=== PATIENT | female | born 1945 | race Caucasian/White ===

== ENCOUNTER → 2016-08-02 | Outpatient (REF) | payer MEDICARE ==
[2016-08-02 18:36] LABS: FOLATE > 24.0 NG/ML (>5.4); VITAMIN B12 LEVEL 1958 PG/ML (247-911)
== END ==
LOC: M LABNEURO 17:04
PROVIDERS: ATTEND Psychiatry & Neurology Neurology
DX: G62.9 Polyneuropathy, unspecified (principal)

== ENCOUNTER → 2016-12-26 | Outpatient (REF) | payer MEDICARE, OTHER ==
[2016-12-26 18:47] LABS: ALBUMIN 3.3 GM/DL (3.2-5.2); ALBUMIN/GLOBULIN RATIO 0.8 (1.00-1.93); BILIRUBIN,TOTAL 0.4 MG/DL (0.2-1.0); CALCIUM LEVEL 9.5 MG/DL (8.8-10.2); CREATININE FOR GFR 1.15 MG/DL (0.55-1.02); FREE T4 0.94 NG/DL (0.76-1.46); GLOMERULAR FILTRATION RATE 49.4 (>39); POTASSIUM SERUM 4.7 MEQ/L (3.5-5.1); TOTAL PROTEIN 7.4 GM/DL (6.4-8.2)
== END ==
LOC: M SFHCLERA 12:16
PROVIDERS: ATTEND Family Medicine
DX: E11.9 Type 2 diabetes mellitus without complications (principal); R53.83 Other fatigue

== ENCOUNTER → 2017-02-13 | Outpatient (REF) | payer MEDICARE, OTHER ==
[2017-02-13 16:47] LABS: ALBUMIN 2.8 GM/DL (3.2-5.2); ALBUMIN/GLOBULIN RATIO 0.74 (1.00-1.93); BILIRUBIN,TOTAL 0.4 MG/DL (0.2-1.0); CALCIUM LEVEL 8.8 MG/DL (8.8-10.2); CREATININE FOR GFR 1.28 MG/DL (0.55-1.02); GLOMERULAR FILTRATION RATE 43.6 (>39); POTASSIUM SERUM 3.7 MEQ/L (3.5-5.1); TOTAL PROTEIN 6.6 GM/DL (6.4-8.2)
== END ==
LOC: M LABNEURO 15:26
PROVIDERS: ATTEND Psychiatry & Neurology Neurology
DX: Z51.81 Encounter for therapeutic drug level monitoring (principal); Z79.899 Other long term (current) drug therapy

== ENCOUNTER → 2017-03-25 | Outpatient (REF) | payer MEDICARE, OTHER | LOC: M SFHCLERA 18:52 | PROVIDERS: ATTEND Family Medicine | DX: R60.9 Edema, unspecified (principal) ==

== ENCOUNTER → 2017-03-25 | Outpatient (REF) | payer MEDICARE, OTHER ==
[2017-03-25 18:43] LABS: ALBUMIN/GLOBULIN RATIO 0.81 (1.00-1.93); BILIRUBIN,TOTAL 0.4 MG/DL (0.2-1.0); CALCIUM LEVEL 8.5 MG/DL (8.8-10.2); CREATININE FOR GFR 1.46 MG/DL (0.55-1.02); GLOMERULAR FILTRATION RATE 37.5 (>39); POTASSIUM SERUM 3.5 MEQ/L (3.5-5.1); TOTAL PROTEIN 6.7 GM/DL (6.4-8.2)
[2017-03-25 18:56] LABS: BASO % 0.5 % (0.0-1.0); EOS # 0.2 K/mm3 (0.0-0.50); LARGE UNSTAINED CELL # 0.1 K/mm3 (0.0-0.4); LARGE UNSTAINED CELL % 1.2 % (0.0-4.0); LYMPH # 2.1 K/mm3 (1.5-4.5); LYMPH % 33.5 % (24.0-44.0); MEAN CORPUSCULAR HEMOGLOBIN 30.7 pg (27.0-33.0); MEAN CORPUSCULAR HGB CONC 32.7 g/dl (32.0-36.5); MEAN CORPUSCULAR VOLUME 93.6 fl (80.0-96.0); MONO # 0.4 K/mm3 (0.0-0.8); MONO % 7.1 % (0.0-5.0); NEUTROPHILS # 3.2 K/mm3 (1.8-7.7); NEUTROPHILS % 54.7 % (36.0-66.0); PLATELET COUNT, AUTOMATED 149 k/mm3 (150-450); RED CELL DISTRIBUTION WIDTH 13.2 % (11.5-14.5); WHITE BLOOD COUNT 5.9 K/mm3 (4.0-10.0)
== END ==
LOC: M SFHCLERA 16:28
PROVIDERS: ATTEND Family Medicine
DX: R60.9 Edema, unspecified (principal); Z79.899 Other long term (current) drug therapy
CPT/HCPCS: 36415; 80053; 83880; 85025; G0463

== ENCOUNTER → 2017-03-26 | Outpatient (REF) | payer MEDICARE, OTHER | LOC: M SFHCLERA 12:06 | PROVIDERS: ATTEND Family Medicine | DX: R60.9 Edema, unspecified (principal) ==

== ENCOUNTER 2017-06-06 21:55 | Emergency (ER) | payer MEDICARE, OTHER ==
[~2017-06-06] VITALS: Ht 157.5 cm; Wt 84.1 kg
--- NOTE | 2017-06-06 22:46 | REP ---
Clinical: Trauma. Comparison: 03/19/2015. Technique: Axial noncontrast images from the skull base to the thoracic inlet with coronal and sagittal re-formations. Findings: Stable advanced multilevel degenerative disc osteophyte complexes are appreciated and essentially unchanged. Findings include bridging osteophytes as well as posterior osteophytes at the C4-5 through C6-7 level which appear to cause chronic canal stenosis and has not changed as compared to 2014. Alignment and lordosis is otherwise maintained and there is no evidence for acute fracture / compression injury or subluxation. Posterior elements and spinous processes are intact. Paravertebral soft tissues are normal. Impression: Chronic stable advanced multilevel degenerative changes. No acute fracture / compression injury or subluxation. Signed by David Saleh MD 06/06/2017 10:38 P
--- NOTE | 2017-06-06 22:47 | REP ---
Clinical: Trauma. Comparison: 08/24/2016. Findings: Age-related atrophy, periventricular leukomalacia and microvascular ischemic changes are appreciated. The ventricles and sulci are symmetric. Kaminski-white differentiation is maintained. There is no evidence for acute intracranial hemorrhage, mass/mass effect, pathology or infarction. No extra-axial fluid collection. Calvarium is intact. Paranasal sinuses and mastoid air cells are clear. Impression: Age related atrophy and microvascular ischemic changes. No acute intracranial hemorrhage, infarction, or mass/mass effect. Signed by David Saleh MD 06/06/2017 10:38 P
[2017-06-06 23:16] LABS: BASO % 0.4 % (0.0-1.0); EOS # 0.1 10^3/uL (0.0-0.50); EOS % 1.9 % (0.0-3.0); IMMATURE GRANULOCYTE % 0.1 % (0-0); LYMPH % 42.8 % (24.0-44.0); MEAN CORPUSCULAR HEMOGLOBIN 29.1 pg (27.0-33.0); MEAN CORPUSCULAR HGB CONC 32.8 g/dl (32.0-36.5); MEAN CORPUSCULAR VOLUME 88.8 fl (80.0-96.0); MONO # 0.7 10^3/uL (0.0-0.8); MONO % 9.4 % (0.0-5.0); NEUTROPHILS # 3.1 10^3/uL (1.8-7.7); NEUTROPHILS % 45.4 % (36.0-66.0); PLATELET COUNT, AUTOMATED 163 10^3/uL (150-450); RED CELL DISTRIBUTION WIDTH 15.1 % (11.5-14.5); WHITE BLOOD COUNT 6.9 10^3/uL (4.0-10.0)
[2017-06-07 00:03] LABS: ALBUMIN 2.7 GM/DL (3.2-5.2); ALBUMIN/GLOBULIN RATIO 0.64 (1.00-1.93); BILIRUBIN,DIRECT 0.2 MG/DL (0.0-0.2); BILIRUBIN,TOTAL 0.4 MG/DL (0.2-1.0); CALCIUM LEVEL 8.7 MG/DL (8.8-10.2); CREATININE FOR GFR 1.1 MG/DL (0.55-1.02); GLOMERULAR FILTRATION RATE 51.8 (>39); THYROXINE (T4) 10.4 UG/DL (4.5-12.0); TOTAL PROTEIN 6.9 GM/DL (6.4-8.2)
[2017-06-07] MEDS ORDERED: NS 1,000 ML IV ONE (00:15)
[2017-06-07] MEDS ORDERED: CIPROFLOXACIN 400 MG in APPROPRIATE DILUENT 1 EA IV ONE (00:15)
[2017-06-07] MEDS ORDERED: CIPR-249 PO (01:26)
[2017-06-07 01:59] VITALS: BP 121/59
--- NOTE | 2017-06-07 08:51 | REP ---
Clinical: Trauma. Technique: Frontal view of the pelvis with neutral and frog lateral views of the right hip. Findings: No acute fracture dislocation. Age related enthesopathy and moderate arthritic degenerative changes to the bilateral hips appear symmetric. Surrounding soft tissues are unremarkable. Impression: Degenerative changes. No acute fracture or dislocation. Signed by David Saleh MD 06/07/2017 08:43 A
--- NOTE | 2017-06-07 08:52 | REP ---
Clinical: Trauma. Technique: AP, lateral, bilateral oblique views of the right knee. Findings: Advanced tricompartmental osteoarthritic degenerative changes include cortical irregularity, spurring/osteophyte formation, and joint space narrowing. No obvious acute fracture or dislocation. Lateral view cannot exclude small suprapatellar effusion. Impression: Osteopenia and advanced tricompartmental degenerative changes. Possible small suprapatellar effusion. No acute fracture or dislocation identified. Signed by David Saleh MD 06/07/2017 08:43 A
== END 2017-06-07 02:05 | disposition home or self-care (01) ==
LOC: M ED 21:55
DX: E86.0 Dehydration (principal); N39.0 Urinary tract infection, site not specified; W19.XXXA Unspecified fall, initial encounter; Y92.099 Unspecified place in other non-institutional residence as the place of occurrence of the external cause; Y93.01 Activity, walking, marching and hiking; Y99.9 Unspecified external cause status; M85.88 Other specified disorders of bone density and structure, other site; I51.9 Heart disease, unspecified; I10 Essential (primary) hypertension; E11.9 Type 2 diabetes mellitus without complications; R25.1 Tremor, unspecified; Z86.73 Personal history of transient ischemic attack (TIA), and cerebral infarction without residual deficits
CPT/HCPCS: 51701; 70450; 72125; 73502; 73564; 80048; 80076; 81001; 84436; 84443; 84479; 85025; 87088; 87186; 96374; 99284; J0744

== ENCOUNTER → 2017-09-09 | Outpatient (REF) | payer MEDICARE, OTHER ==
[2017-09-09 16:41] LABS: BASO % 0.5 % (0.0-1.0); EOS # 0.2 10^3/uL (0.0-0.50); EOS % 2.6 % (0.0-3.0); HEMATOCRIT 34.4 % (36.0-47.0); IMMATURE GRANULOCYTE % 0.1 % (0-3.0); LYMPH # 3.1 10^3/uL (1.5-4.5); LYMPH % 40.5 % (24.0-44.0); MEAN CORPUSCULAR HEMOGLOBIN 29.2 pg (27.0-33.0); MEAN CORPUSCULAR VOLUME 91.2 fl (80.0-96.0); MONO # 0.4 10^3/uL (0.0-0.8); MONO % 5.8 % (0.0-5.0); NEUTROPHILS # 3.8 10^3/uL (1.8-7.7); NEUTROPHILS % 50.5 % (36.0-66.0); PLATELET COUNT, AUTOMATED 181 10^3/uL (150-450); RED BLOOD COUNT 3.77 10^6/uL (4.00-5.40); RED CELL DISTRIBUTION WIDTH 13.8 % (11.5-14.5); WHITE BLOOD COUNT 7.6 10^3/uL (4.0-10.0)
[2017-09-09 17:30] LABS: ALBUMIN 3.2 GM/DL (3.2-5.2); ALKALINE PHOSPHATASE 52 U/L (45-117); ALT/SGPT 17 U/L (12-78); ANION GAP 6 MEQ/L (8-16); AST/SGOT 15 U/L (7-37); BILIRUBIN,TOTAL 0.2 MG/DL (0.2-1.0); BLOOD UREA NITROGEN 27 MG/DL (7-18); CALCIUM LEVEL 9.2 MG/DL (8.8-10.2); CARBON DIOXIDE LEVEL 34 MEQ/L (21-32); CHLORIDE LEVEL 105 MEQ/L (98-107); CREATININE FOR GFR 1.34 MG/DL (0.55-1.30); GLOMERULAR FILTRATION RATE 41.3 (>39); GLUCOSE, FASTING 74 MG/DL (70-100); POTASSIUM SERUM 4.4 MEQ/L (3.5-5.1); SODIUM LEVEL 145 MEQ/L (136-145); TOTAL PROTEIN 7.2 GM/DL (6.4-8.2)
[2017-09-09 17:48] LABS: ESTIMATED AVERAGE GLUCOSE 126 MG/DL (60-110)
== END ==
LOC: M SFHCLERA 11:17
DX: E11.9 Type 2 diabetes mellitus without complications (principal); I10 Essential (primary) hypertension; D69.6 Thrombocytopenia, unspecified
CPT/HCPCS: 80053

== ENCOUNTER → 2017-11-11 | Outpatient (CLI) | payer MEDICARE, OTHER | LOC: M LRY 14:55 | DX: S49.91XA Unspecified injury of right shoulder and upper arm, initial encounter (principal); M25.711 Osteophyte, right shoulder; X58.XXXA Exposure to other specified factors, initial encounter; Y92.9 Unspecified place or not applicable; Y93.9 Activity, unspecified | CPT/HCPCS: 73030; G0463 ==

== ENCOUNTER → 2018-01-06 | Outpatient (CLI) | payer MEDICARE, OTHER | LOC: M RAD 16:40 | DX: M75.41 Impingement syndrome of right shoulder (principal); S49.91XA Unspecified injury of right shoulder and upper arm, initial encounter; X58.XXXA Exposure to other specified factors, initial encounter; Y92.89 Other specified places as the place of occurrence of the external cause; Y99.9 Unspecified external cause status; Y93.9 Activity, unspecified | CPT/HCPCS: 73221 ==

== ENCOUNTER → 2018-01-23 | Outpatient (CLI) | payer MEDICARE, OTHER | LOC: M LRY 19:25 | DX: J98.11 Atelectasis (principal); R42 Dizziness and giddiness; E11.9 Type 2 diabetes mellitus without complications; R60.0 Localized edema; Z79.899 Other long term (current) drug therapy | CPT/HCPCS: 71046; 80053 ==

== ENCOUNTER → 2018-01-23 | Outpatient (REF) | payer MEDICARE, OTHER ==
[2018-01-23 20:34] LABS: BASO % 0.5 % (0.0-1.0); EOS # 0.3 10^3/uL (0.0-0.50); EOS % 3.3 % (0.0-3.0); HEMATOCRIT 36.4 % (36.0-47.0); HEMOGLOBIN 12.1 g/dl (12.0-15.5); IMMATURE GRANULOCYTE % 0.2 % (0-3.0); LYMPH # 3.6 10^3/uL (1.5-4.5); MEAN CORPUSCULAR HEMOGLOBIN 30.4 pg (27.0-33.0); MEAN CORPUSCULAR HGB CONC 33.2 g/dl (32.0-36.5); MEAN CORPUSCULAR VOLUME 91.5 fl (80.0-96.0); MONO # 0.6 10^3/uL (0.0-0.8); MONO % 6.6 % (0.0-5.0); NEUTROPHILS % 47.4 % (36.0-66.0); PLATELET COUNT, AUTOMATED 204 10^3/uL (150-450); RED BLOOD COUNT 3.98 10^6/uL (4.00-5.40); RED CELL DISTRIBUTION WIDTH 13.5 % (11.5-14.5); WHITE BLOOD COUNT 8.5 10^3/uL (4.0-10.0)
[2018-01-23 20:43] LABS: ESTIMATED AVERAGE GLUCOSE 143 MG/DL (60-110); HEMOGLOBIN A1c 6.6 %
[2018-01-23 21:13] LABS: ALBUMIN 3.6 GM/DL (3.2-5.2); ALBUMIN/GLOBULIN RATIO 0.95 (1.00-1.93); ALKALINE PHOSPHATASE 86 U/L (45-117); ALT/SGPT 11 U/L (12-78); ANION GAP 7 MEQ/L (8-16); AST/SGOT 13 U/L (7-37); BILIRUBIN,TOTAL 0.3 MG/DL (0.2-1.0); BLOOD UREA NITROGEN 41 MG/DL (7-18); CALCIUM LEVEL 8.9 MG/DL (8.8-10.2); CARBON DIOXIDE LEVEL 33 MEQ/L (21-32); CHLORIDE LEVEL 102 MEQ/L (98-107); CREATININE FOR GFR 1.45 MG/DL (0.55-1.30); GLOMERULAR FILTRATION RATE 37.7 (>39); GLUCOSE, FASTING 81 MG/DL (70-100); NT-PRO BNP 704 PG/ML (<125); POTASSIUM SERUM 4.6 MEQ/L (3.5-5.1); SODIUM LEVEL 142 MEQ/L (136-145); TOTAL PROTEIN 7.4 GM/DL (6.4-8.2); TROPONIN I < 0.02 NG/ML (< 0.10)
== END ==
LOC: M SFHCLERA 19:09
DX: R42 Dizziness and giddiness (principal); E11.9 Type 2 diabetes mellitus without complications
CPT/HCPCS: 80053

== ENCOUNTER → 2018-01-30 | Outpatient (REF) | payer MEDICARE, OTHER ==
[2018-01-30 20:24] LABS: ANION GAP 4 MEQ/L (8-16); BLOOD UREA NITROGEN 38 MG/DL (7-18); CALCIUM LEVEL 9.1 MG/DL (8.8-10.2); CARBON DIOXIDE LEVEL 36 MEQ/L (21-32); CHLORIDE LEVEL 100 MEQ/L (98-107); CREATININE FOR GFR 1.54 MG/DL (0.55-1.30); GLOMERULAR FILTRATION RATE 35.2 (>39); GLUCOSE, FASTING 172 MG/DL (70-100); POTASSIUM SERUM 4.5 MEQ/L (3.5-5.1); SODIUM LEVEL 140 MEQ/L (136-145)
== END ==
LOC: M SFHCLERA 15:26
DX: I50.9 Heart failure, unspecified (principal)
CPT/HCPCS: 80048

== ENCOUNTER 2018-03-06 07:46 | Day surgery (SDC) | payer MEDICARE, OTHER ==
[2018-03-06] MEDS: POVIDONE-IODINE 5% OPHTH PREP SOL 30ML As Ordered ×2 (06:57)
[2018-03-06] MEDS: OFLOXACIN 0.3 % (OCUFLOX) OPTH SOL 5ML OD ×2 (08:17)
[2018-03-06] MEDS: PROPARACAINE 0.5% OPHTH SOL 15ML OD ×2 (08:17)
[2018-03-06] MEDS: PHENYLEPHRINE 2.5% OPHTH SOL 2ML OD ×2 (08:18)
[2018-03-06] MEDS: TROPICAMIDE 1% OPHTH SOLN 2ML OD ×2 (08:18)
[2018-03-06] MEDS ORDERED: fentaNYL 100 MCG/2 ML INJECTION (J3010) As Ordered ×2 (09:25)
[2018-03-06] MEDS ORDERED: MIDAZOLAM INJ 2 MG/2 ML VIAL (J2250) As Ordered ×2 (09:25)
[2018-03-06] MEDS: BALANCED SALT IRRIGATION SOLUTION 500ML BAG (FOR OR EYE MACHINE) As Ordered ×2 (09:49)
[2018-03-06] MEDS: LIDOCAINE 0.75%/EPINEPHRINE 0.025% IN BSS 1ML SYR INTRACAMERAL (OR ONLY) As Ordered (09:49)
[2018-03-06] MEDS: DUOVISC (0.50ML VISCOAT/0.55ML PROVISC) OPHTH KIT As Ordered ×2 (09:49)
== END 2018-03-06 10:54 | disposition home or self-care (01) ==
LOC: M SDC 07:46
DX: H25.11 Age-related nuclear cataract, right eye (principal); I25.10 Atherosclerotic heart disease of native coronary artery without angina pectoris; I25.2 Old myocardial infarction; G47.30 Sleep apnea, unspecified; G20 Parkinson's disease; Z79.899 Other long term (current) drug therapy; Z86.73 Personal history of transient ischemic attack (TIA), and cerebral infarction without residual deficits; Z91.040 Latex allergy status; Z91.041 Radiographic dye allergy status; Z88.0 Allergy status to penicillin; Z87.891 Personal history of nicotine dependence; I10 Essential (primary) hypertension; E78.5 Hyperlipidemia, unspecified; Z79.82 Long term (current) use of aspirin
CPT/HCPCS: 66984

== ENCOUNTER 2018-03-20 06:31 | Day surgery (SDC) | payer MEDICARE, OTHER ==
[2018-03-20] MEDS: TROPICAMIDE 1% OPHTH SOLN 2ML OS (07:15)
[2018-03-20] MEDS: PHENYLEPHRINE 2.5% OPHTH SOL 2ML OS (07:15)
[2018-03-20] MEDS: OFLOXACIN 0.3 % (OCUFLOX) OPTH SOL 5ML OS (07:15)
[2018-03-20] MEDS: PROPARACAINE 0.5% OPHTH SOL 15ML OS (07:15)
[2018-03-20] MEDS: POVIDONE-IODINE 5% OPHTH PREP SOL 30ML As Ordered (08:11)
[2018-03-20] MEDS: BALANCED SALT IRRIGATION SOLUTION 500ML BAG (FOR OR EYE MACHINE) As Ordered (08:13)
[2018-03-20] MEDS: DUOVISC (0.50ML VISCOAT/0.55ML PROVISC) OPHTH KIT As Ordered (08:14)
[2018-03-20] MEDS: LIDOCAINE 0.75%/EPINEPHRINE 0.025% IN BSS 1ML SYR INTRACAMERAL (OR ONLY) As Ordered (08:14)
[2018-03-20] MEDS ORDERED: MIDAZOLAM INJ 2 MG/2 ML VIAL (J2250) As Ordered (08:33)
[2018-03-20] MEDS ORDERED: fentaNYL 100 MCG/2 ML INJECTION (J3010) As Ordered (08:33)
== END 2018-03-20 09:15 | disposition home or self-care (01) ==
LOC: M SDC 06:31
DX: H25.12 Age-related nuclear cataract, left eye (principal); H52.202 Unspecified astigmatism, left eye; I25.10 Atherosclerotic heart disease of native coronary artery without angina pectoris; I10 Essential (primary) hypertension; I25.2 Old myocardial infarction; G47.30 Sleep apnea, unspecified; Z88.0 Allergy status to penicillin; Z91.040 Latex allergy status; Z79.899 Other long term (current) drug therapy; E78.5 Hyperlipidemia, unspecified; Z87.891 Personal history of nicotine dependence; Z86.73 Personal history of transient ischemic attack (TIA), and cerebral infarction without residual deficits
CPT/HCPCS: 66984

== ENCOUNTER → 2018-04-21 | Outpatient (REF) | payer MEDICARE, OTHER | LOC: M SFHCLERA 15:12 | DX: R51 Headache (principal); E11.9 Type 2 diabetes mellitus without complications ==

== ENCOUNTER → 2018-05-03 | Outpatient (REF) | payer MEDICARE, OTHER ==
[2018-05-03 19:48] LABS: ALBUMIN 3.9 GM/DL (3.2-5.2); ALBUMIN/GLOBULIN RATIO 1.03 (1.00-1.93); ALKALINE PHOSPHATASE 78 U/L (45-117); ALT/SGPT 20 U/L (12-78); ANION GAP 6 MEQ/L (8-16); AST/SGOT 13 U/L (7-37); BILIRUBIN,TOTAL 0.3 MG/DL (0.2-1.0); BLOOD UREA NITROGEN 20 MG/DL (7-18); CALCIUM LEVEL 9.2 MG/DL (8.8-10.2); CARBON DIOXIDE LEVEL 32 MEQ/L (21-32); CHLORIDE LEVEL 106 MEQ/L (98-107); CHOLESTEROL LEVEL 256 MG/DL (<200); CHOLESTEROL RISK RATIO 5.818 (<5); CREATININE FOR GFR 1.18 MG/DL (0.55-1.30); GLOMERULAR FILTRATION RATE 47.7 (>39); GLUCOSE, FASTING 104 MG/DL (70-100); HDL CHOLESTEROL 44 MG/DL (>40); LDL CHOLESTEROL 140 MG/DL (<100); NON-HDL-C 212 MG/DL; POTASSIUM SERUM 4.7 MEQ/L (3.5-5.1); SODIUM LEVEL 144 MEQ/L (136-145); TOTAL PROTEIN 7.7 GM/DL (6.4-8.2); TRIGLYCERIDES LEVEL 360 MG/DL (<150)
[2018-05-03 20:00] LABS: ESTIMATED AVERAGE GLUCOSE 134 MG/DL (60-110); HEMOGLOBIN A1c 6.3 %
[2018-05-03 20:17] LABS: MALB URINE SIEMENS 34.1 MG/L
[2018-05-03 20:25] LABS: MAU/CREAT RATIO 17.5 MCG/MG (0.0-30.0)
[2018-05-03 21:05] LABS: ERYTHROCYTE SEDIMENTATION RATE 24 mm/hr (0-30)
== END ==
LOC: M SFHCLERA 14:37
DX: E11.9 Type 2 diabetes mellitus without complications (principal); R51 Headache

== ENCOUNTER → 2018-05-03 | Outpatient (CLI) | payer MEDICARE, OTHER | LOC: M LRY 14:38 | DX: M89.9 Disorder of bone, unspecified (principal); E11.9 Type 2 diabetes mellitus without complications; R51 Headache | CPT/HCPCS: 80053 ==

== ENCOUNTER → 2018-10-28 | Outpatient (REF) | payer MEDICARE, OTHER ==
[~2018-10-28] MED LIST: ALBU17IN2 INH; AMLO2.5T3 PO; ASPI81TA26 PO; CARV6.25 PO; CIPR-249 PO; EPIP0.3I2 IM; FERR325T3 PO; FOLI1TAB11 PO; GABA-843 PO; HYDR-3713 PO; IBUP-1114 PO; MAGN400T2 PO; MECL-86 PO; MELA10CA PO; MYRB50TA PO; ROPI0.5T PO; SINE25TA5 PO; TORS100T PO; TRAM50TA2 PO; VALS1TAB67 PO; VITA500T3 PO; WOMETAB2 PO
[2018-10-28 18:34] LABS: MALB URINE SIEMENS 84.5 MG/L; MAU/CREAT RATIO 24.6 MCG/MG (0.0-30.0)
[2018-10-28 19:26] LABS: CALCIUM LEVEL 9.8 MG/DL (8.8-10.2); CREATININE FOR GFR 1.38 MG/DL (0.55-1.30); GLOMERULAR FILTRATION RATE 39.8 (>39); POTASSIUM SERUM 4.5 MEQ/L (3.5-5.1)
[2018-10-28 19:41] LABS: HEMOGLOBIN A1c 6.8 %
== END ==
LOC: M SFHCLERA 11:56
PROVIDERS: ATTEND Family Medicine
DX: E11.9 Type 2 diabetes mellitus without complications (principal)
CPT/HCPCS: 80048; 82043; 83036; G0463

== ENCOUNTER 2018-11-23 22:59 | Emergency (ER) | payer MEDICARE, OTHER ==
[~2018-11-23] VITALS: Ht 157.5 cm; Wt 99.1 kg
[2018-11-24 00:05] LABS: HEMATOCRIT 38.5 % (36.0-47.0); HEMOGLOBIN 12.5 g/dl (12.0-15.5); MEAN CORPUSCULAR HEMOGLOBIN 30.3 pg (27.0-33.0); MEAN CORPUSCULAR HGB CONC 32.5 g/dl (32.0-36.5); MEAN CORPUSCULAR VOLUME 93.2 fl (80.0-96.0); PLATELET COUNT, AUTOMATED 193 10^3/uL (150-450); RED BLOOD COUNT 4.13 10^6/uL (4.00-5.40); WHITE BLOOD COUNT 9.3 10^3/uL (4.0-10.0)
[2018-11-24 00:29] LABS: AMPHETAMINES LEVEL URINE NEGATIVE (NEGATIVE); BARBITURATES URINE NEGATIVE (NEGATIVE); BENZODIAZEPINES URINE NEGATIVE (NEGATIVE); CANNABINOIDS URINE NEGATIVE (NEGATIVE); COCAINE METABOLITE URINE NEGATIVE (NEGATIVE); METHADONE URINE NEGATIVE (NEGATIVE); OPIATES URINE NEGATIVE (NEGATIVE); PHENCYCLIDINE URINE NEGATIVE (NEGATIVE)
[2018-11-24 00:32] LABS: ACETAMINOPHEN LEVEL < 2.0 UG/ML (10.0-30.0); ALBUMIN 3.3 GM/DL (3.2-5.2); ALT/SGPT 18 U/L (12-78); BILIRUBIN,DIRECT 0.1 MG/DL (0.0-0.2); BILIRUBIN,TOTAL 0.4 MG/DL (0.2-1.0); BLOOD UREA NITROGEN 22 MG/DL (7-18); CALCIUM LEVEL 8.6 MG/DL (8.8-10.2); CARBON DIOXIDE LEVEL 29 MEQ/L (21-32); CHLORIDE LEVEL 110 MEQ/L (98-107); CREATININE FOR GFR 1.04 MG/DL (0.55-1.30); ETHYL ALCOHOL (ETHANOL) < 0.003 % (0.000-0.010); GLOMERULAR FILTRATION RATE 55.1 (>39); GLUCOSE, FASTING 139 MG/DL (70-100); POTASSIUM SERUM 3.6 MEQ/L (3.5-5.1); SALICYLATE LEVEL < 1.7 MG/DL (5.0-30.0); SODIUM LEVEL 145 MEQ/L (136-145); TOTAL PROTEIN 7.1 GM/DL (6.4-8.2)
[2018-11-24] MEDS ORDERED: LORazepam 1 MG TAB PO STA (03:24)
[2018-11-24 03:26] VITALS: BP 147/80
[2018-11-24] MEDS ORDERED: CIPR-249 PO (03:26)
== END 2018-11-24 03:33 | disposition home or self-care (01) ==
LOC: M ED 22:59
DX: Z63.0 Problems in relationship with spouse or partner (principal); F43.0 Acute stress reaction; N39.0 Urinary tract infection, site not specified; I25.10 Atherosclerotic heart disease of native coronary artery without angina pectoris; I10 Essential (primary) hypertension; G20 Parkinson's disease; Z87.442 Personal history of urinary calculi; D50.9 Iron deficiency anemia, unspecified; J45.909 Unspecified asthma, uncomplicated; Z95.5 Presence of coronary angioplasty implant and graft; Z79.82 Long term (current) use of aspirin; Z79.899 Other long term (current) drug therapy; Z91.040 Latex allergy status; Z91.041 Radiographic dye allergy status; Z88.0 Allergy status to penicillin
CPT/HCPCS: 80048; 80076; 80307; 81001; 84443; 85027; 87088; 87186; 99284; G0480

== ENCOUNTER 2018-12-10 23:11 | Emergency (ER) | payer MEDICARE, OTHER ==
[~2018-12-10] VITALS: Ht 157.5 cm; Wt 99.5 kg
[2018-12-11 00:07] LABS: ACETAMINOPHEN LEVEL < 2.0 UG/ML (10.0-30.0); ALBUMIN 3.4 GM/DL (3.2-5.2); ALT/SGPT 8 U/L (12-78); BILIRUBIN,DIRECT < 0.1 MG/DL (0.0-0.2); BILIRUBIN,TOTAL 0.3 MG/DL (0.2-1.0); BLOOD UREA NITROGEN 24 MG/DL (7-18); CALCIUM LEVEL 8.8 MG/DL (8.8-10.2); CARBON DIOXIDE LEVEL 31 MEQ/L (21-32); CHLORIDE LEVEL 109 MEQ/L (98-107); ETHYL ALCOHOL (ETHANOL) < 0.003 % (0.000-0.010); GLOMERULAR FILTRATION RATE 51.7 (>39); GLUCOSE, FASTING 131 MG/DL (70-100); POTASSIUM SERUM 4.3 MEQ/L (3.5-5.1); SALICYLATE LEVEL < 1.7 MG/DL (5.0-30.0); SODIUM LEVEL 146 MEQ/L (136-145); TOTAL PROTEIN 7.1 GM/DL (6.4-8.2)
[2018-12-11 00:14] LABS: HEMATOCRIT 37.2 % (36.0-47.0); MEAN CORPUSCULAR HEMOGLOBIN 30.9 pg (27.0-33.0); MEAN CORPUSCULAR HGB CONC 32.3 g/dl (32.0-36.5); MEAN CORPUSCULAR VOLUME 95.9 fl (80.0-96.0); PLATELET COUNT, AUTOMATED 205 10^3/uL (150-450); RED BLOOD COUNT 3.88 10^6/uL (4.00-5.40)
[2018-12-11] MEDS ORDERED: ACETAMINOPHEN 500 MG TAB PO ONE ×2 (01:45→10:00)
[2018-12-11 03:16] LABS: AMPHETAMINES LEVEL URINE NEGATIVE (NEGATIVE); BARBITURATES URINE NEGATIVE (NEGATIVE); BENZODIAZEPINES URINE NEGATIVE (NEGATIVE); CANNABINOIDS URINE NEGATIVE (NEGATIVE); COCAINE METABOLITE URINE NEGATIVE (NEGATIVE); METHADONE URINE NEGATIVE (NEGATIVE); OPIATES URINE NEGATIVE (NEGATIVE); PHENCYCLIDINE URINE NEGATIVE (NEGATIVE)
--- NOTE | 2018-12-11 08:13 | ECGEPIP ---
[facility] - ED Test Date: 2018-12-11 Pat Name: DEBORA FUENTES Department: Room: - Gender: Female Product Development Worker: [place] : 1945 Requested By: BRYON BRIGGS Order Number: [id number] Reading MD: Edmar Kimble Measurements Intervals [place] Rate: 73 P: 48 IL: 178 QRS: 19 QRSD: 94 T: 19 QT: 367 QTc: 407 Interpretive Statements SINUS RHYTHM WITH OCCASIONAL VENTRICULAR PREMATURE COMPLEXES LOW QRS VOLTAGE IN PRECORDIAL LEADS NSTTW ABNORMALITIES NO PRIORS FOR COMPARISON Electronically Signed on 12-11-2018 6:36:05 EDT by Edmar Kimble
[2018-12-11] MEDS ORDERED: CARB25TA18 PO (08:38)
[2018-12-11] MEDS ORDERED: ATOR1TAB21 PO (08:38)
[2018-12-11] MEDS ORDERED: FOLI1TAB11 PO (08:40)
[2018-12-11] MEDS ORDERED: NEUR300C PO (08:40)
[2018-12-11] MEDS ORDERED: PLAV1TAB2 PO (08:40)
[2018-12-11] MEDS ORDERED: OXYC1TAB23 PO (08:42)
[2018-12-11] MEDS ORDERED: SERT25TA85 PO (08:44)
[2018-12-11] MEDS ORDERED: TORS100T PO (08:44)
[2018-12-11] MEDS ORDERED: TORSEMIDE 100 MG TAB PO SCH (09:00)
[2018-12-11] MEDS ORDERED: GABAPENTIN 300 MG CAP PO ONE (09:15)
[2018-12-11] MEDS ORDERED: amLODIPine 5 MG TAB PO ONE (09:15)
[2018-12-11] MEDS ORDERED: ATORVASTATIN 20 MG TAB PO ONE (09:15)
[2018-12-11] MEDS ORDERED: VALSARTAN 80 MG TAB (DIOVAN) PO ONE (09:15)
[2018-12-11] MEDS ORDERED: SERTRALINE HCL 25 MG TABLET PO ONE (09:15)
[2018-12-11] MEDS ORDERED: CLOPIDOGREL 75 MG TAB PO ONE (09:15)
[2018-12-11] MEDS ORDERED: SINEMET 25-100 MG TAB PO ONE (09:15)
[2018-12-11] MEDS ORDERED: CARVedilol 12.5 MG TAB PO ONE (09:15)
[2018-12-11 09:50] VITALS: BP 138/87
== END 2018-12-11 09:50 ==
LOC: M ED 23:11
DX: R45.851 Suicidal ideations (principal); I10 Essential (primary) hypertension; D50.9 Iron deficiency anemia, unspecified; I51.9 Heart disease, unspecified; I27.0 Primary pulmonary hypertension; G20 Parkinson's disease; Z79.899 Other long term (current) drug therapy; Z88.0 Allergy status to penicillin; Z88.2 Allergy status to sulfonamides; Z91.040 Latex allergy status; Z91.041 Radiographic dye allergy status
CPT/HCPCS: 80048; 80076; 80307; 84443; 85027; 93005; 99284; G0480

== ENCOUNTER → 2019-03-06 | Outpatient (REF) | payer MEDICARE, OTHER ==
[~2019-03-06] MED LIST changes: +ATOR1TAB21 PO; +CARB25TA18 PO; +CYAN500T8 PO; +NEUR300C PO; +OXYC1TAB23 PO; +PLAV1TAB2 PO; +SERT25TA85 PO; -VITA500T3 PO
[2019-03-06 17:05] LABS: ALBUMIN 3.6 GM/DL (3.2-5.2); BILIRUBIN,TOTAL 0.4 MG/DL (0.2-1.0); CALCIUM LEVEL 9.3 MG/DL (8.8-10.2); CHOLESTEROL RISK RATIO 3.951 (<5); CREATININE FOR GFR 1.22 MG/DL (0.55-1.30); GLOMERULAR FILTRATION RATE 45.9 (>39); POTASSIUM SERUM 4.3 MEQ/L (3.5-5.1); TOTAL PROTEIN 7.2 GM/DL (6.4-8.2)
[2019-03-06 17:16] LABS: HEMOGLOBIN A1c 7.1 %
== END ==
LOC: M SFHCLERA 12:02
PROVIDERS: ATTEND Family Medicine
DX: R11.2 Nausea with vomiting, unspecified (principal); E78.5 Hyperlipidemia, unspecified; E11.9 Type 2 diabetes mellitus without complications

== ENCOUNTER → 2019-03-06 | Outpatient (CLI) | payer MEDICARE, OTHER ==
--- NOTE | 2019-03-06 13:15 | REP ---
PA and lateral chest: Comparison is 01/23/2018. There is cardiomegaly, unchanged. Lung quiroz are clear. The angelito, mediastinum, skeletal structures are unremarkable. Impression: Cardiomegaly, otherwise negative chest. Electronically Signed by Woodrow Covington MD 03/06/2019 01:07 P
== END ==
LOC: M LRY 12:39
PROVIDERS: ATTEND Family Medicine
DX: I51.7 Cardiomegaly (principal); R09.02 Hypoxemia; E11.9 Type 2 diabetes mellitus without complications
CPT/HCPCS: 71046; 80053; 80061; 83036; 83690; 93005; G0463

== ENCOUNTER → 2019-03-19 | Outpatient (REF) | payer MEDICARE, OTHER ==
[2019-03-19 20:54] LABS: MALB URINE SIEMENS 18.6 MG/L; MAU/CREAT RATIO 10.9 MCG/MG (0.0-30.0)
== END ==
LOC: M SFHCLERA 09:56
PROVIDERS: ATTEND Family Medicine
DX: E11.9 Type 2 diabetes mellitus without complications (principal)

== ENCOUNTER → 2019-03-25 | Outpatient (CLI) | payer MEDICARE, OTHER ==
[~2019-03-25] MED LIST changes: -ALBU17IN2 INH; +PROV108A INH
--- NOTE | 2019-03-25 16:07 | PFTRPT ---
Height: 62.00 Inches Weight: 219.00 Lbs BSA: 1.99 Diagnosis: R09 DATE OF PROCEDURE: 03/25/2019 ORDERED BY: Lissett Duff MD Spirometry: Excellent technical quality. Forced vital capacity normal. FEV1 in proportion. Obstructive index is, therefore, normal. Flow Volume Loop: Expiratory limb of the flow volume loop is normal. Lung Volumes: Total lung capacity normal. Residual volume is generally in proportion. Diffusing Capacity: Diffusing capacity, although reduced, is appropriate for alveolar volume. Hemoglobin: No hemoglobin available for correction. Airway Mechanics: Airway resistance and conductance are normal. IMPRESSION: Diffusing capacity limitation requires clinical correlation. MTDD
== END ==
LOC: M CARPUL 15:04
PROVIDERS: ATTEND Family Medicine
DX: R09.02 Hypoxemia (principal)

== ENCOUNTER 2019-08-18 03:50 | Inpatient (IN) | payer MEDICARE, OTHER ==
[~2019-08-18] VITALS: Ht 157.5 cm; Wt 90.5 kg
[2019-08-18] MEDS ORDERED: GABA-843 PO (04:51)
[2019-08-18] MEDS ORDERED: CARB25TA9 PO (04:51)
[2019-08-18] MEDS ORDERED: NITR4TASL SL (04:51)
[2019-08-18] MEDS ORDERED: TORS100T PO (04:51)
[2019-08-18] MEDS ORDERED: VENTAER INH (04:51)
[2019-08-18] MEDS ORDERED: SERT50TA29 PO (04:51)
[2019-08-18] MEDS ORDERED: LIDO5DIS41 TD (04:51)
[2019-08-18] MEDS ORDERED: ROPI1TAB PO (04:51)
[2019-08-18] MEDS ORDERED: AMLO2.5T3 PO (04:51)
[2019-08-18] MEDS ORDERED: TYLE650T35 PO (04:51)
[2019-08-18] MEDS ORDERED: ATOR1TAB21 PO (04:51)
[2019-08-18] MEDS ORDERED: ISOS30TA4 PO (04:51)
[2019-08-18] MEDS ORDERED: TRAZ-252 PO (04:51)
[2019-08-18] MEDS ORDERED: VITMTA PO (04:51)
[2019-08-18] MEDS ORDERED: FOLI1TAB11 PO (04:51)
[2019-08-18 06:26] LABS: HEMATOCRIT 45.3 % (36.0-47.0); HEMOGLOBIN 14.5 g/dl (12.0-15.5); MEAN CORPUSCULAR HEMOGLOBIN 30.1 pg (27.0-33.0); PLATELET COUNT, AUTOMATED 206 10^3/uL (150-450); RED BLOOD COUNT 4.82 10^6/uL (4.00-5.40); WHITE BLOOD COUNT 10.1 10^3/uL (4.0-10.0)
[2019-08-18 06:49] LABS: AMPHETAMINES LEVEL URINE NEGATIVE (NEGATIVE); BARBITURATES URINE NEGATIVE (NEGATIVE); BENZODIAZEPINES URINE NEGATIVE (NEGATIVE); CANNABINOIDS URINE NEGATIVE (NEGATIVE); COCAINE METABOLITE URINE NEGATIVE (NEGATIVE); METHADONE URINE NEGATIVE (NEGATIVE); OPIATES URINE NEGATIVE (NEGATIVE); PHENCYCLIDINE URINE NEGATIVE (NEGATIVE)
[2019-08-18 07:03] LABS: ACETAMINOPHEN LEVEL < 2.0 UG/ML (10.0-30.0); ALBUMIN 4.1 GM/DL (3.2-5.2); ALT/SGPT 19 U/L (12-78); BILIRUBIN,DIRECT 0.2 MG/DL (0.0-0.2); BILIRUBIN,TOTAL 0.4 MG/DL (0.2-1.0); BLOOD UREA NITROGEN 16 MG/DL (7-18); CALCIUM LEVEL 8.9 MG/DL (8.8-10.2); CARBON DIOXIDE LEVEL 30 MEQ/L (21-32); CHLORIDE LEVEL 108 MEQ/L (98-107); ETHYL ALCOHOL (ETHANOL) < 0.003 % (0.000-0.010); GLOMERULAR FILTRATION RATE 57.5 (>39); GLUCOSE, FASTING 141 MG/DL (70-100); POTASSIUM SERUM 3.9 MEQ/L (3.5-5.1); SALICYLATE LEVEL < 1.7 MG/DL (5.0-30.0); SODIUM LEVEL 144 MEQ/L (136-145)
[2019-08-18] MEDS ORDERED: ACETAMINOPHEN TAB 650MG DOSE (2X325MG) PO ONE (08:15)
[2019-08-18] MEDS ORDERED: MULTIVITAMINS/MINERALS THERAP 1 TAB PO ONE (10:30)
[2019-08-18] MEDS ORDERED: SINEMET 25-100 MG TAB PO ONE (10:30)
[2019-08-18] MEDS ORDERED: CARVedilol 6.25 MG TAB PO ONE (10:30)
[2019-08-18] MEDS ORDERED: CLOPIDOGREL 75 MG TAB PO ONE (10:30)
[2019-08-18] MEDS ORDERED: CARVedilol 12.5 MG TAB PO ONE (10:30)
[2019-08-18] MEDS ORDERED: TORSEMIDE 100 MG TAB PO ONE (10:30)
[2019-08-18] MEDS ORDERED: ISOSORBIDE MON. (IMDUR) 30 MG XR TAB PO ONE (10:30)
[2019-08-18] MEDS ORDERED: GABAPENTIN 300 MG CAP PO ONE (10:30)
[2019-08-18] MEDS ORDERED: MAALOX 30 ML SUSP *UDC PO PRN (13:15)
[2019-08-18] MEDS ORDERED: MOM 30ML SUSPENSION UDC PO PRN (13:15)
[2019-08-18] MEDS ORDERED: haloperidoL 5 MG TAB PO PRN (13:15)
[2019-08-18] MEDS ORDERED: traMADol 50 MG TAB PO ONE ×2 (13:30→22:30)
[2019-08-18 13:39] VITALS: BP 118/73
[2019-08-18] MEDS: traZODone 50 MG TAB PO PRN (22:14)
[2019-08-19] MEDS ORDERED: LIDOCAINE 5% (LIDODERM) PATCH TD ONE
[2019-08-19 07:23] VITALS: BP 142/84
[2019-08-19] MEDS ORDERED: **NOTE PATIENT COMMENT** MISC XX ONE (12:00)
[2019-08-19] MEDS: ACETAMINOPHEN TAB 650MG DOSE (2X325MG) PO PRN (13:05)
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
[2019-08-19 16:31] VITALS: BP 160/80
[2019-08-19] MEDS ORDERED: ACETAMINOPHEN 650MG ER TAB (TYLENOL ARTHRITIS) PO PRN (19:00)
[2019-08-19] MEDS ORDERED: rOPINIRole 1MG TAB PO PRN (19:00)
[2019-08-19] MEDS ORDERED: NITROGLYCERIN 0.4 MG SUBL TABLET SL PRN (19:00)
[2019-08-19] MEDS ORDERED: ALBUTEROL 90 MCG/ACT 8GM HFA INHALER INH PRN (19:00)
[2019-08-19] MEDS ORDERED: MECLIZINE 25 MG TABLET PO PRN (19:00)
[2019-08-19] MEDS ORDERED: PILL CUTTER 1 EACH XX PRN (19:30)
[2019-08-19] MEDS: CLOPIDOGREL 75 MG TAB PO SCH (19:40)
[2019-08-19] MEDS: FOLIC ACID 1 MG TAB PO SCH (21:07)
[2019-08-19] MEDS: SINEMET 25-100 MG TAB PO SCH (21:07)
[2019-08-19] MEDS ORDERED: LOPERAMIDE 2 MG CAPLET PO ONE (22:30)
[2019-08-19] MEDS ORDERED: LOPERAMIDE 2 MG CAPLET PO PRN (22:30)
[2019-08-19] MEDS: traZODone 50 MG TAB PO PRN (22:54)
[2019-08-20] MEDS: ACETAMINOPHEN TAB 650MG DOSE (2X325MG) PO PRN (01:33)
[2019-08-20 06:24] VITALS: BP 150/90
[2019-08-20] MEDS ORDERED: PNEUMOCOCCAL VACCINE 0.5ML SYRINGE(90732) PNEUMOVAX 23 IM ONE (09:00)
[2019-08-20] MEDS ORDERED: FLUBLOK(EGG FREE)(QUAD)INFLUENZA VACC 0.5ML SYRINGE (90682)18YRS&OLDER IM ONE (09:00)
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
[2019-08-20] MEDS: oxyBUTYnin 5 MG TAB PO SCH (09:13)
[2019-08-20] MEDS: SINEMET 25-100 MG TAB PO SCH ×3 (09:13→20:52)
[2019-08-20] MEDS: CLOPIDOGREL 75 MG TAB PO SCH (09:13)
[2019-08-20] MEDS: VALSARTAN 80 MG TAB (DIOVAN) PO SCH (09:15)
[2019-08-20] MEDS ORDERED: SERTRALINE 100 MG TAB PO ONE (10:00)
[2019-08-20] MEDS ORDERED: ATORVASTATIN 20 MG TAB PO SCH (12:00)
[2019-08-20] MEDS: traMADol 50 MG TAB PO PRN (13:34)
[2019-08-20 18:42] VITALS: BP 145/83
[2019-08-20] MEDS: FOLIC ACID 1 MG TAB PO SCH (20:51)
[2019-08-20] MEDS: traZODone 50 MG TAB PO PRN (20:51)
[2019-08-20] MEDS ORDERED: LIDOCAINE 5% (LIDODERM) PATCH TD SCH (21:00)
[2019-08-20] MEDS ORDERED: risperiDONE 0.5 MG TAB PO SCH (21:00)
--- NOTE | 2019-08-21 05:23 | HPEPDOC ---
[facility] Medical History & Physical Date of Admission Aug 21, 2019 Date of Service: Aug 21, 2019 Primary Care Physician: WILLOW CASTELLANOS MD Attending Physician: MONA MTZ DO History and Physical TIME OF SERVICE: 5:35 AM REASON FOR CONSULT: Medical evaluation HISTORY OF PRESENT ILLNESS: This is a 74-year-old female is limited to [facility] for management of possible paranoia with mood and anxiety disorder. This morning she is complaining of mild back pain but denies any other acute complaints. She had to space being discharged later on today. REVIEW OF SYSTEMS: 12 point review of systems negative except as listed in HPI PAST MEDICAL/ SURGICAL HISTORY: Diabetes Parkinson's Depression Hypertension CVA 2 Spinal stenosis. Diastolic CHF CKD Status post hysterectomy. Status post breast biopsy 2 Status post kidney stone removal SOCIAL HISTORY: She doesn't smoke ALLERGIES: Please see below. HOME MEDICATIONS: Please see below. PHYSICAL EXAMINATION: VITAL SIGNS: Please see below. GEN: well-nourished / well developed/ NAD HEENT: NCAT CVS: RRR/NMRG LUNGS: clear to auscultation bilaterally on room air PSYCH: alert and oriented / able to understand and follow all commands LABORATORY DATA: 08/18/19 WBC 10.1, hemoglobin 14.5, platelets 206, sodium 144, potassium 3.9, chloride 108, Carbon dioxide 30, BUN 16, creatinine 1, GFR 57.5, glucose 141, TSH 2.99. Drug screen was unremarkable ASSESSMENT: Ms. Zarate is a 74-year-old female with a history of diabetes, hypertension, Parkinson's, and remote history of CVAs was admitted to [facility] for possible paranoia; we were consulted for medical comanagement. PLAN: 1. Possible paranoia/Depression - Plan: Per Primary Team 2. Parkinson's - Plan: Continue Sinemet, ropinirole 3. Chronic Hypertension/ Diastolic CHF - Plan: Continue with valsartan resume amlodipine 2.5 mg daily 4. History of CVAs -Plan: Continue atorvastatin, clopidogrel 5. Back pain likely due to Spinal stenosis - Plan: Continue lidocaine patch, tramadol and Tylenol 6. CKD - Plan: Follow-up with PCP 7. Obesity with BMI of 36.5, and coexisting diabetes - Plan: Follow-up with PCP for A1c, STOP BANG questionnaire, care team assistant consult & referral for Bariatric Surgeon / recommend cardiovascular exercise for 40 min 4-5 days a week Thank you for consulting us . We will sign off unless any acute issues arise Vital Signs Vital Signs Date Time Temp Pulse Resp B/P (MAP) Pulse Ox O2 Delivery O2 Flow Rate FiO2 08/20/19 18:42 97.3 91 16 145/83 (103) 08/20/19 09:47 Room Air 08/18/19 14:55 95 Home Medications Scheduled Amlodipine Besylate (Amlodipine Besylate) 2.5 Mg Tablet, 2.5 MG PO DAILY Atorvastatin Calcium (Atorvastatin Calcium) 20 Mg Tablet, 20 MG PO DAILY TAKES AT NOON Carbidopa/Levodopa (Carbidopa-Levodopa 25-100 Tab) 1 Each Tablet, 1 TAB PO TID MORNING, NOON AND QHS Carvedilol (Carvedilol) 6.25 Mg Tab, 25 MG PO BID Clopidogrel Bisulfate (Plavix) 75 Mg Tablet, 75 MG PO DAILY Folic Acid (Folic Acid) 1 Mg Tablet, 1 MG PO QHS Gabapentin (Gabapentin) 300 Mg Capsule, 300 MG PO TID Isosorbide Mononitrate (Isosorbide Mononitrate ER) 30 Mg Tab.er.24h, 30 MG PO DAILY Lidocaine (Lidoderm) 5% Adh..patch, 1 PATCH TD QHS APPLIES TO LOWER BACK Mirabegron (Myrbetriq) 50 Mg Tab, 50 MG PO DAILY Multivitamins (Thera M Plus Tablet) 1 Each Tablet, 1 TAB PO DAILY Sertraline HCl (Sertraline HCl) 50 Mg Tablet, 50 MG PO QHS Torsemide (Torsemide) 100 Mg Tablet, 100 MG PO DAILY Trazodone HCl (Trazodone HCl) 50 Mg Tablet, 50 MG PO QHS Valsartan (Valsartan) 160 Mg Tab, 160 MG PO DAILY Scheduled PRN Acetaminophen (Tylenol Arthritis) 650 Mg Tablet.er, 1,300 MG PO BID PRN for PAIN Albuterol Sulfate (Ventolin Hfa) 18 Gm Hfa.aer.ad, 2 PUFF INH QID PRN for SHORTNESS OF BREATH Epinephrine (Epipen 2-David) 0.3 Mg/0.3 Ml Inj, 0.3 MG IM ASDIRECTED PRN for ANAPHYLAXIS Meclizine HCl (Meclizine HCl) 25 Mg Tab, 25 MG PO TID PRN for VERTIGO/DIZZINESS Nitroglycerin (Nitrostat) 0.4 Mg Tab.subl, 0.4 MG SL NITRO PRN for CHEST PAIN Ropinirole HCl (Ropinirole HCl) 1 Mg Tablet, 1.5 MG PO TID PRN for RESTLESSNESS Tramadol HCl (Tramadol HCl) 50 Mg Tab, 50 MG PO TID PRN for PAIN Allergies Coded Allergies: Sulfa (Sulfonamide Antibiotics) (Verified Allergy, Mild, unknown, 08/18/19) Contrast Media (Verified Allergy, Unknown, HIVES, 08/18/19) Penicillins (Verified Allergy, Unknown, HIVES, 08/18/19) latex (Verified Allergy, Unknown, RASH, 08/18/19) A-FIB/CHADSVASC A-FIB History Current/History of A-Fib/PAF?: No Current PO Anticoag Therapy: RAJ Chowdhury MD Aug 21, 2019 05:23
[2019-08-21 06:10] VITALS: BP 145/85
[2019-08-21] MEDS ORDERED: SERTRALINE 100 MG TAB PO SCH (09:00)
[2019-08-21] MEDS ORDERED: **NOTE PATIENT COMMENT** MISC XX SCH (09:00)
[2019-08-21] MEDS ORDERED: SERT-138 PO (09:06)
[2019-08-21] MEDS ORDERED: TRAZ-252 PO (09:06)
[2019-08-21] MEDS ORDERED: RISP0.5T21 PO (09:06)
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
[2019-08-21 09:16] VITALS: BP 142/88
[2019-08-21] MEDS: oxyBUTYnin 5 MG TAB PO SCH (09:16)
[2019-08-21] MEDS: SINEMET 25-100 MG TAB PO SCH (09:16)
[2019-08-21] MEDS: VALSARTAN 80 MG TAB (DIOVAN) PO SCH (09:16)
[2019-08-21] MEDS: CLOPIDOGREL 75 MG TAB PO SCH (09:16)
[2019-08-21] MEDS: traMADol 50 MG TAB PO PRN (09:18)
== END 2019-08-21 11:05 | disposition home or self-care (01) | DRG 881 ==
LOC: EDBD 03:50 → M ED 03:50 → M ED INP 13:05 → M PSY 15:09
PROVIDERS: ADMIT Psychiatry & Neurology Psychiatry; ATTEND Psychiatry & Neurology Psychiatry
DX: F32.9 Major depressive disorder, single episode, unspecified (principal); F06.2 Psychotic disorder with delusions due to known physiological condition; G20 Parkinson's disease; Z79.01 Long term (current) use of anticoagulants; Z79.899 Other long term (current) drug therapy; Z88.0 Allergy status to penicillin; Z88.2 Allergy status to sulfonamides; Z91.040 Latex allergy status; Z91.041 Radiographic dye allergy status; E11.9 Type 2 diabetes mellitus without complications; I10 Essential (primary) hypertension; Z62.810 Personal history of physical and sexual abuse in childhood; Z63.8 Other specified problems related to primary support group

== ENCOUNTER → 2020-02-29 | Outpatient (CLI) | payer MEDICARE, OTHER ==
[~2020-02-29] MED LIST changes: +ACET650T61 PO; +CARB25TA9 PO; +ISOS30TA4 PO; +LIDO5DIS41 TD; +NITR4TASL SL; +RISP0.5T21 PO; -ROPI0.5T PO; +ROPI0.5T3 PO; +ROPI1TAB3 PO; +SERT-138 PO; +SERT50TA29 PO; +TRAZ-252 PO; +VENTAER INH; +VITMTA PO
== END ==
LOC: M RAD 15:15
PROVIDERS: ATTEND Psychiatry & Neurology Neurology
DX: R25.9 Unspecified abnormal involuntary movements (principal); R41.89 Other symptoms and signs involving cognitive functions and awareness

== ENCOUNTER → 2020-09-07 | Outpatient (REF) | payer MEDICARE, OTHER ==
[~2020-09-07] MED LIST changes: +CYAN500T14 PO; -CYAN500T8 PO; +GABA-282 PO; -GABA-843 PO; +ISOS1TAB35 PO; -ISOS30TA4 PO
== END ==
LOC: M SFHCLERA 15:35
PROVIDERS: ATTEND Nurse Practitioner Family
DX: R35.0 Frequency of micturition (principal)
CPT/HCPCS: 81002; 87086; G0463

== ENCOUNTER → 2022-02-28 | Outpatient (CLI) | payer MEDICARE, OTHER ==
[~2022-02-28] MED LIST changes: +CARB-89 PO; -SINE25TA5 PO
== END ==
LOC: M RAD 09:21
PROVIDERS: ATTEND Student in an Organized Health Care Education/Training Program
DX: R42 Dizziness and giddiness (principal); W19.XXXA Unspecified fall, initial encounter; Y99.9 Unspecified external cause status

== ENCOUNTER → 2023-02-21 | Outpatient (CLI) | payer MEDICARE, OTHER ==
[~2023-02-21] MED LIST changes: +ALBU6.7H6 INH; +CARB-113 PO; -CARB-89 PO; +CLOP75TA99 PO; -PLAV1TAB2 PO; -PROV108A INH; -ROPI0.5T3 PO; +ROPI0.5T33 PO; -ROPI1TAB3 PO; +ROPI1TAB73 PO
[2023-02-21 15:53] LABS: BASO # 0.1 10^3/uL (0.0-0.2); BASO % 0.7 % (0.0-1.0); EOS # 0.2 10^3/uL (0.0-0.5); EOS % 2.7 % (0.0-3.0); HEMATOCRIT 35.2 % (36.0-47.0); HEMOGLOBIN 11.2 g/dl (12.0-15.5); LYMPH # 2.6 10^3/uL (1.5-5.0); LYMPH % 29.4 % (24.0-44.0); MEAN CORPUSCULAR HEMOGLOBIN 28.9 pg (27.0-33.0); MEAN CORPUSCULAR HGB CONC 31.8 g/dl (32.0-36.5); MEAN CORPUSCULAR VOLUME 90.7 fl (80.0-96.0); MONO # 0.6 10^3/uL (0.0-0.8); MONO % 6.5 % (2.0-8.0); NEUTROPHILS # 5.4 10^3/uL (1.5-8.5); NEUTROPHILS % 60.5 % (36.0-66.0); PLATELET COUNT, AUTOMATED 189 10^3/uL (150-450); RED BLOOD COUNT 3.88 10^6/uL (4.00-5.40)
[2023-02-21 16:16] LABS: HEMOGLOBIN A1c 5.6 % (4.0-6.0)
[2023-02-21 16:18] LABS: ALBUMIN 3.6 G/DL (3.2-5.2); BILIRUBIN,TOTAL 0.4 MG/DL (0.3-1.2); CHOLESTEROL RISK RATIO 3.18 (<5); CREATININE FOR GFR 1.47 MG/DL (0.55-1.30); GLOMERULAR FILTRATION RATE 36.6 (>39); HDL CHOLESTEROL 48.3 MG/DL (>40); LDL CHOLESTEROL 78.3 MG/DL (<100); NON-HDL-C 105.7 MG/DL; POTASSIUM SERUM 3.2 MMOL/L (3.5-5.1); TOTAL PROTEIN 7.2 G/DL (5.7-8.2)
[2023-02-21 16:22] LABS: THYROID STIMULATING HORMONE 2.299 uIU/ML (0.55-4.78)
[2023-02-21 16:23] LABS: FREE T4 1.51 NG/DL (0.89-1.76)
== END ==
LOC: M PLALAB 14:18
PROVIDERS: ATTEND Student in an Organized Health Care Education/Training Program
DX: I10 Essential (primary) hypertension (principal)

== ENCOUNTER → 2023-02-21 | Outpatient (CLI) | payer MEDICARE, OTHER | LOC: M WHC 13:11 | PROVIDERS: ATTEND Student in an Organized Health Care Education/Training Program | DX: Z12.31 Encounter for screening mammogram for malignant neoplasm of breast (principal); R92.8 Other abnormal and inconclusive findings on diagnostic imaging of breast ==

== ENCOUNTER → 2023-03-07 | Outpatient (CLI) | payer MEDICARE, OTHER | LOC: M WHC 09:41 | PROVIDERS: ATTEND Student in an Organized Health Care Education/Training Program | DX: R92.8 Other abnormal and inconclusive findings on diagnostic imaging of breast (principal) | CPT/HCPCS: 77065; G0279 ==

== ENCOUNTER → 2023-07-24 | Outpatient (REF) | payer MEDICARE, OTHER ==
[2023-07-25 12:25] LABS: RSV AMPLIFICATION NEGATIVE (NEGATIVE)
== END ==
LOC: M SFHCLERA 11:26
PROVIDERS: ATTEND Physician Assistant
DX: J22 Unspecified acute lower respiratory infection (principal)

== ENCOUNTER → 2025-06-03 | Outpatient (REF) | payer MEDICARE, OTHER ==
[~2025-06-03] MED LIST changes: +GABA-1172 PO; -GABA-282 PO; +LIDO1ADH93 TD; -LIDO5DIS41 TD
[2025-06-03 18:35] LABS: BASO # 0.0 10^3/uL (0.0-0.2); BASO % 0.4 % (0.0-1.0); EOS # 0.2 10^3/uL (0.0-0.5); EOS % 2.6 % (0.0-3.0); LYMPH # 1.7 10^3/uL (1.5-5.0); LYMPH % 23.8 % (24.0-44.0); MONO # 0.4 10^3/uL (0.0-0.8); MONO % 5.7 % (2.0-8.0); NEUTROPHILS # 4.7 10^3/uL (1.5-8.5); NEUTROPHILS % 67.2 % (36.0-66.0); PLATELET COUNT, AUTOMATED 168 10^3/uL (150-450)
[2025-06-03 18:47] LABS: ALT/SGPT 13.0 U/L (7.0-40); AST/SGOT 14.0 U/L (<34); CALCIUM LEVEL 8.9 MG/DL (8.3-10.6); CARBON DIOXIDE LEVEL 31.0 MMOL/L (20-31); CHLORIDE LEVEL 104.0 MMOL/L (98-107); CHOLESTEROL LEVEL 143.0 MG/DL (<200); CHOLESTEROL RISK RATIO 3.01 (<5); CREATININE FOR GFR 1.3 MG/DL (0.55-1.30); GLOMERULAR FILTRATION RATE 41.3 (>32); LDL CHOLESTEROL 78.6 MG/DL (<100); NON-HDL-C 95.6 MG/DL; POTASSIUM SERUM 3.7 MMOL/L (3.5-5.1); SODIUM LEVEL 145.0 MMOL/L (136-145); TRIGLYCERIDES LEVEL 85.0 MG/DL (<150)
[2025-06-03 19:27] LABS: ESTIMATED AVERAGE GLUCOSE 123.0 MG/DL (60-110)
== END ==
LOC: M SFHCLERA 14:09
PROVIDERS: ATTEND Student in an Organized Health Care Education/Training Program
DX: Z00.00 Encounter for general adult medical examination without abnormal findings (principal); R32 Unspecified urinary incontinence; Z79.899 Other long term (current) drug therapy